=== PATIENT | male | born 1960 | race Caucasian/White ===

== ENCOUNTER 2019-08-18 08:58 | Emergency (ER) | payer BC, SELFPAY ==
--- NOTE | ~2019-08-18 | CT_ITS ---
EXAMINATION: CTA chest PE protocol EXAM DATE: 08/18/2019 10:26 INDICATION: Dyspnea, left anterior chest pain. TECHNIQUE: Spiral CTA of the chest (pulmonary arteries) was performed with 100 cc Omnipaque 350 intr avenous contrast injection. Images were acquired during the pulmonary arterial phase. Coronal maxi mum intensity projection 3D-reconstructions were created by the technologist on dedicated workstation . Axial, coronal and sagittal reformatted images were reviewed. The dose-length product (DLP) for t his examination was 922.07 mGy-cm. The exposure was tailored according to patient size (auto mA exp osure control), and iterative reconstruction (ASIR) was used as additional dose reduction technique. There is no prior study for comparison. FINDINGS: Pulmonary arteries are well opacified and without intraluminal filling defects. There is right hilar adenopathy (2.8 x 1.8 cm) and also suprahilar soft tissue, node or malignancy (1.8 x 1.2 cm) extending along the right upper lobe anterior segmental pulmonary veins which could be thrombosed from occlusion more centrally due to the lymphadenopathy. There is also occlusion of the right upper lobe anterior segmental bronchus. Most likely primary lung cancer and lymphadenopathy. Punctate right upper lobe reticulonodular opacities along the distribution of the obstructed right up per lobe anterior segmental bronchus. There is mild to moderate emphysema. No thoracic aortic dissect ion. The lungs are clear. There are no pleural or pericardial effusions. Tracheobronchial tree i s patent. There is no pneumothorax. Heart normal in size. There is mild coronary arterial vito cification, arterial sclerosis. Upper abdomen is unremarkable. There is a sclerotic focus in the r ight scapula measuring 12 mm. There is a 5 mm sclerotic focus in the left seventh rib laterally IMPRESSION: 1. Right hilar, suprahilar adenopathy likely malignancy and metastatic lymphadenopathy occluding the right upper lobe anterior segmental bronchus and pulmonary veins (which are nonenhancing from tumor and/or bland thrombus). 2. Two sclerotic bone foci, bone islands versus osseous metastatic disease. No pulmonary emboli. 3. Mild to moderate emphysema. Reviewed, dictated and finalized at location B. OWS AND DOORS INSTALLER IMPRESSION: 1. Right hilar, suprahilar adenopathy likely malignancy and metastatic lymphad enopathy occluding the right upper lobe anterior segmental bronchus and pulmona ry veins (which are nonenhancing from tumor and/or bland thrombus). 2. Two sclerotic bone foci, bone islands versus osseous metastatic disease. No pulmonary emboli. 3. Mild to moderate emphysema.
--- NOTE | 2019-08-18 09:03 | ECG_ITS ---
Measurements Intervals [place] Rate: 84 P: 59 WI: 164 QRS: 76 QRSD: 98 T: 73 QT: 360 QTc: 428 Interpretive Statements SINUS RHYTHM INCOMPLETE RIGHT BUNDLE BRANCH BLOCK CANNOT RULE OUT SEPTAL INFARCT, AGE INDETERMINATE ABNORMAL ECG Electronically Signed On 08-18-2019 13:53:44 RECORDING STUDIO INTERN by Gildardo Tran D.O.
[2019-08-18 09:25] LABS: Basophils Absolute Auto 0.08 K/mm3 (0.00-0.10); Basophils Percent Auto 0.7 % (0.0-1.0); Eosinophils Absolute Auto 0.38 K/mm3 (0.02-0.50); Eosinophils Percent Auto 3.5 % (1.0-6.0); Hematocrit 45.1 % (40.0-54.0); Hemoglobin 15.4 g/dL (14.0-18.0); Immature Granulocyte Absolute 0.04 K/mm3 (0.00-0.00); Immature Granulocyte Percent A 0.4 % (0.0-0.0); Lymphocytes Absolute Auto 2.73 K/mm3 (1.10-4.50); Lymphocytes Percent Auto 25.2 % (18.0-42.0); Mean Corpuscular HGB Conc 34.1 g/dL (32.0-36.0); Mean Corpuscular Hemoglobin 29.9 pg (27.0-31.0); Mean Corpuscular Volume 87.6 fL (78.0-102.0); Mean Platelet Volume 9.7 fl (8.7-11.0); Monocytes Absolute Auto 0.74 K/mm3 (0.10-0.90); Monocytes Percent Auto 6.8 % (2.0-11.0); Neutrophils Absolute Auto 6.9 K/mm3 (1.7-7.2); Neutrophils Percent Auto 63.4 % (50.0-70.0); Platelet Count Result 228 K/mm3 (150-420); Red Blood Count 5.15 M/mm3 (4.70-6.10); Red Cell Distribution Width 12.7 % (11.6-14.4); White Blood Count 10.9 K/mm3 (4.8-10.8)
--- NOTE | 2019-08-18 09:29 | ED.CHESTPAIN ---
HPI - Chest Pain General Chief Complaint: Chest Pain Stated Complaint: chest pain Source: patient Mode of arrival: ambulatory Limitations: no limitations History of Present Illness HPI narrative: This is a 58-year-old male with of presentation without chest pain left lower sternal border area with no radiation with a mild cough and pain with deep inspirations started earlier this morning, with mild shortness of breath with some inspiration with currently no fever or chills no nausea vomiting no abdominal pain no back pain no diarrhea constipation. The patient rates his pain at about an 8/10 with no radiation to his jaw or arms, patient does have a history of CAD with a stent placement back in 2011. Patient took a.m. full-dose aspirin prior to arrival, others no leg swelling no edema in his lower extremities no calf pain or tenderness. Current blood pressure 181/108 with no headache no blurry vision. 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 Onset (ago): day(s) Timing of current episode: constant Onset: during rest Pain location: left chest Pain radiation: none Severity: moderate Pain scale (0-10): 8 Quality: tightness and sharp Relieving factors: nothing Exacerbating factors: inspiration Treatment prior to arrival: aspirin Risk Factors Coronary artery disease risk factors: smoking history and hypertension Thoracic aortic dissection risk factors: none Related Data Home Medications Medication Instructions Recorded Confirmed Aspir-81 81 mg BYMOUTH DAILY 08/18/19 08/18/19 Allergies Allergy/AdvReac Type Severity Reaction Status Date / Time sulindac Allergy Mild stomach Verified 10/04/08 15:42 upset codeine AdvReac Mild Unknown Verified 08/18/19 09:54 Review of Systems Review of Systems: All systems reviewed & are unremarkable except as noted in HPI and below PMFSH Past Medical History Medical History CAD (coronary artery disease) HTN (hypertension) Social History Social History Gender identity (if verbalized by the patient): Male Exam Const: General: no acute distress and alert Nutritional Appearance: well nourished Orientation/consciousness: patient oriented x3 HENMT: Head: normal to inspection Eyes: Conjunctivae: conjunctivae normal Pupils: Equal, round and reactive pupils present Neck: Neck: normal visual inspection Chest: Chest palpation & inspection: normal inspection of the chest Resp: Effort & Inspection: normal respiratory effort Cardio: Rate: regular rate Rhythm: regular rhythm GI: Auscultation: normal bowel sounds : Testes: Testes normal Skin: General skin exam: normal color Rashes: no rashes Neuro: General: patient oriented x3, moves all extremities, no meningeal signs and no focal motor deficits Speech: normal speech Extrem: General: normal to inspection, no clubbing, cyanosis or edema and no pedal edema Psych: Appearance: grossly normal Mental Status: mental status grossly normal Affect: normal affect Attitude: cooperative Thought content: Yes Normal thought content present Course Course Emergency Course: After re-evaluation of patient of vital signs have improved his blood pressure initially 181/100 weight is down to 136/94, despite morphine and nitroglycerin continues to rate his pain at about an 8/10. CTA performed and radiology read the CT a and after talking to the patient and his it was advised that he follow-up with his primary care physician a sap offer referral to cash management specialist to investigate of the findings on the CTA of his chest. Was explained that there is a right hilar / suprahilar adenopathy likely malignancy and metastatic lymphadenopathy. There is a 5mm sclerotic lesion on the left 7th rib which would correspond to wear is having pain with mild to moderate COPD. This was explained to francis
[2019-08-18] MEDS: NITROGLYCERIN SL 0.4 MG TABLET SUBLINGUAL (09:31)
[2019-08-18] MEDS: MORPHINE SULFATE 2 MG/ML INJ 4 MG IV PUSH (09:32)
[2019-08-18 09:33] LABS: Partial Thromboplastin Time 33.3 SEC (22.3-31.6); Prothrombin Time 10.1 Seconds (9.64-11.0)
[2019-08-18 09:39] LABS: Alanine Aminotransferase 28 U/L (16-63); Albumin Level 3.9 g/dL (3.4-5.0); Alkaline Phosphatase 89 U/L (46-116); Anion Gap 14.3 mmol/L (7-16); Aspartate Amino Transferase 11 U/L (15-37); Bilirubin,Total 0.3 mg/dL (0.00-1.00); Blood Urea Nitrogen 20 mg/dL (7-18); Carbon Dioxide 27 mmol/L (21-32); Chloride 103 mmol/L (98-108); Estimated Glomerular Filt Rate > 60; Glucose 103 mg/dL (70-99); Osmolality Calculated 292 mOsm/kg (285-295); Potassium 4.3 mmol/L (3.5-5.1); Sodium 140 mmol/L (136-145); Total Protein 7.6 g/dL (6.4-8.2)
[2019-08-18 09:41] VITALS: PULSE 96; RESP 20; TEMP 36.3; O2SAT 98
[2019-08-18 09:46] LABS: D Dimer 0.66 mg/L (0.19-0.50)
[2019-08-18 09:49] LABS: Troponin I < 0.02 ng/mL (0.00-0.056)
[2019-08-18 09:53] LABS: Influenza Control Valid (Valid)
[2019-08-18] MEDS: KETOROLAC 30 MG/ML VIAL (*BKC) IV PUSH (10:40)
[2019-08-18 11:08] VITALS: BP 135/85; PULSE 76; RESP 18; O2SAT 98
== END 2019-08-18 11:09 | disposition home or self-care (01) ==
PROVIDERS: Emergency Provider Emergency Medicine; PCP Family Medicine
DX: R91.1 Solitary pulmonary nodule (principal); R07.9 Chest pain, unspecified
CPT/HCPCS: 36415; 71275; 80053; 84484; 85025; 85380; 85610; 85730; 87804; 93005; 96374; 96375; 99284; A9270; J1885; J2270; Q9965

== ENCOUNTER 2019-08-29 11:02 | Outpatient (CLI) | payer BC, SELFPAY ==
--- NOTE | 2019-08-29 14:18 | ECHO_ITS ---
Patient Info Name: Dario Dixon Age: 58 years : 1960 Gender: Male Ht: 72 in Wt: 250 lbs BSA: 2.44 m2 HR: 82 bpm BP: 146 / 98 mmHg Heart Rhythm: Sinus Rhythm Technical Quality: Fair Exam Date: 08/29/2019 2:10 PM Exam Location: [facility] Patient Status: Outpatient Admit Date: 08/29/2019 Staff Ordering Physician: Gildardo Tran DO Manpower Development Specialist Manager: Malika Collier RDCS Attending Provider: Gildardo Tran DO Referring Physician: Marc SHARP; Exam Type: CA echo doppler color flow Study Info Indications R06.09 - Other forms of dyspnea Complete two-dimensional, color flow and Doppler transthoracic echocardiogram is performed. Strain analysis performed. History/Risk Factors Hypertension: Yes Dyslipidemia: Yes Myocardial Infarction (GA): Yes Obesity: Yes Coronary Artery Disease (CAD) Yes Date of Last Tobacco Use: 08/29/2019 Date of Prior GA: 08/21/2011 Diabetes Mellitus: No Tobacco Use: Current - Every Day If Any Current, Tobacco Type: Cigarettes If Current - Every Day \T\ Cigarettes, Amount: Light Tobacco Use (<10/day) Family History: Diabetes Mellitus Deep Vein Thrombosis (DVT): None Frailty Scale (CSHA): 2: Well Prior Interventions Pacemaker: No PCI: No CABG: No Valve Surgery: No ICD: No Heart Transplant: No Summary 1. Left ventricular chamber dimension is normal. 2. Left ventricular systolic function is normal, estimated at 55-60%. 3. The left ventricular diastolic function is grade I diastolic dysfunction. 4. E/e' 6 is not elevated. 5. Global longitudinal strain is abnormal at -13.1%. 6. There is trace aortic valve regurgitation. 7. The aortic root size at the sinus of Valsalva is borderline dilated at 4.1 cm. Recommendations * Smoking cessation counseling is recommended for this patient. Left Ventricle E/e' 6 is not elevated. Global longitudinal strain is abnormal at -13.1%. Left ventricular chamber dimension is normal. Left ventricular systolic function is normal, estimated at 55-60%. The left ventricular diastolic function is grade I diastolic dysfunction. Right Ventricle Right ventricular chamber dimension is normal. Right ventricular systolic function is normal. Left Atria Left atrial chamber dimension is normal. Right Atria Right atrial chamber dimension is normal. Aortic Valve The aortic valve is trileaflet. There is no aortic valve stenosis. There is trace aortic valve regurgitation. Pulmonic Valve There is no pulmonic regurgitation. Mitral Valve There is no mitral valve stenosis. There is no mitral valve regurgitation. Tricuspid Valve There is no tricuspid valve regurgitation. Pericardium/Pleural There is no pericardial effusion. Inferior Vena Cava Normal inferior vena cava with >50% collapse upon inspiration consistent with normal right atrial pressure, 5 mmHg. Aorta The aortic root size at the sinus of Valsalva is borderline dilated at 4.1 cm. Left Ventricular Outflow Tract Name Value Normal LVOT 2D LVOT Diameter 2.5 cm LVOT Doppler
--- NOTE | 2019-08-29 15:30 | EST_ITS ---
Patient Info Name: Dario Dixon Age: 58 years : 1960 Gender: Male Ht: 72 in Wt: 256 lbs BSA: 2.47 m2 Exam Date: 08/29/2019 12:25 PM Exam Location: [facility] Attending Provider: DO PRINCESS Referring Physician: ARON Beck; Exam Type: Stress Test Summary 1. 1. Negative lexiscan stress test for ischemic ST changes by ECG criteria. 2. 2. Stable hemodynamics throughout the test. 3. 3. Nuclear scan to follow and will be reported separately. Please correlate with it. 4. 4. Patient informed of the above results. Protocol: LEXISCAN Stress ECG Details Stage: REST Duration (min): 6 min : 3 sec HR (bpm): 81 SBP (mmHg): --- DBP (mmHg): --- Stage: REST Duration (min): 12 min : 5 sec HR (bpm): 79 SBP (mmHg): --- DBP (mmHg): --- Stage: STAGE 1 Duration (min): 0 min : 8 sec HR (bpm): 83 SBP (mmHg): --- DBP (mmHg): --- Stage: RECOVERY Duration (min): 0 min : 51 sec HR (bpm): 98 SBP (mmHg): --- DBP (mmHg): --- Stage: RECOVERY Duration (min): 1 min : 51 sec HR (bpm): 102 SBP (mmHg): --- DBP (mmHg): --- Stage: RECOVERY Duration (min): 2 min : 51 sec HR (bpm): 101 SBP (mmHg): --- DBP (mmHg): --- Stage: RECOVERY Duration (min): 3 min : 51 sec HR (bpm): 98 SBP (mmHg): 170 DBP (mmHg): 78 Stage: RECOVERY Duration (min): 4 min : 51 sec HR (bpm): 95 SBP (mmHg): 170 DBP (mmHg): 78 Stage: RECOVERY Duration (min): 5 min : 51 sec HR (bpm): 94 SBP (mmHg): 162 DBP (mmHg): 74 Stage: RECOVERY Duration (min): 6 min : 8 sec HR (bpm): 95 SBP (mmHg): 162 DBP (mmHg): 74 Rest HR: 79 bpm Peak HR: 102 bpm Rest Sys BP: 140 mmHg Peak Sys BP: 170 mmHg Max Pred HR: 162 bpm % Max Pred HR: 63 % Target HR: 138 bpm Max RPP: 17,340 bpm*mmHg Termination Reason: Completed protocol Cardiac Symptoms: Shortness of breath Total Time: 0 min : 8 sec Rest Polanco BP: 70 mmHg Peak Polanco BP: 78 mmHg Total Dose: 0.4 mg Resting ECG Sinus rhythm. Stress ECG No ST changes. Arrhythmias None. Report Signatures
== END 2019-08-29 11:03 | disposition home or self-care (01) ==
PROVIDERS: PCP Family Medicine; Visit Provider Internal Medicine Cardiovascular Disease
DX: R06.09 Other forms of dyspnea (principal); R07.9 Chest pain, unspecified
CPT/HCPCS: 78452; 93017; 93306; A9502; J2785

== ENCOUNTER 2020-07-16 11:03 | Outpatient (CLI) | payer BC, SELFPAY ==
--- NOTE | ~2020-07-16 | XR_ITS ---
EXAMINATION: XR chest 2V EXAM DATE: 07/16/2020 11:22 INDICATION: Cough for one year. History pneumonia. TECHNIQUE: Frontal and lateral projections of the chest obtained and reviewed. Comparison is made to prior examination from 08/08/2015. Correlation made to chest CT 08/18/2019. FINDINGS: Interval development of right suprahilar mass consistent with malignancy. The lungs are ot herwise clear. There are no pleural effusions. The cardiomediastinal silhouette is within normal li mits. There is no pneumothorax suspected. Approximately 1 cm right scapular sclerotic focus. IMPRESSION: Right suprahilar malignancy. I left a message for Dr. Moreno Britt MD's nurse Srikanth on 07/16/2020 11:33 JUICE STANDARDIZER. I alerted her to this report, with pertinent finding and provided my direct number. Reviewed, dictated and finalized at location A. E STANDARDIZER IMPRESSION: Right suprahilar malignancy. I left a message for Dr. Moreno Britt MD's nurse Srikanth on 07/16/2020 11:3 3 JUICE STANDARDIZER. I alerted her to this report, with pertinent finding and provided my di rect number.
== END 2020-07-16 11:04 | disposition home or self-care (01) ==
PROVIDERS: Family Provider Family Medicine; PCP Family Medicine; Visit Provider Family Medicine
DX: R05 Cough (principal); C34.01 Malignant neoplasm of right main bronchus
CPT/HCPCS: 71046

== ENCOUNTER → 2020-07-30 13:43 | Outpatient (CLI) | payer BC, SELFPAY ==
--- NOTE | ~2020-07-30 | CT_ITS ---
EXAMINATION: CT diagnostic chest w con DATE: 07/30/2020 14:17 INDICATION: Localized swelling mass and lump trunk, cough TECHNIQUE: Transaxial computed tomographic images of the chest were obtained after the administration of 75 cc of Omnipaque 350 intravenous contrast. The dose-length product (DLP) was 687.17 mGy-cm. Ite rative reconstruction was used. COMPARISON: 08/18/2019 FINDINGS: There is an approximately 9.0 x 5.6 cm right hilar mass which invades the right upper media stinum. The mass results in severe narrowing and near complete occlusion of the right upper lobe pulm onary artery. There is also obstruction of the right upper lobe bronchus in this phase of respiration although portions of the right upper lobe remain aerated. There are pathologically enlarged right pa ratracheal, right hilar, and subcarinal lymph nodes. Also noted are pathologically enlarged left axil reba lymph nodes. There is a new 10 mm nodule of the left lower lobe on image 64. No pleural effusion or pneumothorax is identified. The heart size is normal. Calcified coronary artery atherosclerosis i s noted. There are innumerable masses of the liver, the largest of which measures 5.5 cm in the right hepatic lobe. There is matted periportal lymphadenopathy. There is a 2.7 x 1.7 cm mass of the left a drenal gland. IMPRESSION: 1. Right perihilar mass, consistent with primary bronchogenic carcinoma. 2. Innumerable liver masses, right hilar, mediastinal, left axillary, and periportal lymphadenopathy, consistent with metastatic disease. 3. New left lower lobe nodule, also concerning for metastatic disease. Reviewed, dictated and finalized at location A. HICS INTERN IMPRESSION: 1. Right perihilar mass, consistent with primary bronchogenic carcinoma. 2. Innumerable liver masses, right hilar, mediastinal, left axillary, and perip ortal lymphadenopathy, consistent with metastatic disease. 3. New left lower lobe nodule, also concerning for metastatic disease.
[2020-07-30 14:07] LABS: Estimated Glomerular Filt Rate > 60
== END ==
PROVIDERS: PCP Family Medicine; Visit Provider Family Medicine
DX: R22.2 Localized swelling, mass and lump, trunk (principal)
CPT/HCPCS: 71260; Q9967

== ENCOUNTER 2020-08-31 13:44 | Outpatient (CLI) | payer BC, SELFPAY ==
--- NOTE | ~2020-08-31 | PE_ITS ---
EXAMINATION: PET skull to mid thigh DATE: 08/31/2020 15:17 INDICATION: Lung nodule. TECHNIQUE: Blood glucose level was 91 mg/dL. 10.140 mCi of 18-fluorodeoxyglucose (18-FDG) was adminis tered i.v. Low dose computed tomography (CT) images were acquired from the base of the brain to the p roximal thighs for attenuation correction and anatomic localization. Automated exposure control was e mployed. Dose-length product (DLP) was 1134 mGy-cm. Positron emission tomography (PET) images were ac quired in the same distribution. COMPARISON: Chest CT 07/30/2020 FINDINGS: Head/neck: There is an enlarged high right internal jugular node with increased activity. There is in creased activity in the glottis without CT correlate, likely physiologic. Chest: There is mild emphysema. There is a large right hilar mass contiguous with mediastinal lymphad enopathy and right lung airspace opacities with increased activity, likely a combination of right vitaliy g primary malignancy and hilar and mediastinal lymphadenopathy. There is total occlusion of right upp er lobe bronchus and right middle lobe bronchus and stenosis of bronchus intermedius. There are perip heral airspace opacities in right middle lobe without increased activity. No pleural effusion. The he art size is normal. There are coronary artery calcifications. There is ectasia of ascending aorta ifeanyi suring 4.5 cm. There is left axillary lymphadenopathy with increased activity. There is a lytic lesio n of coracoid process of left scapula with increased activity. There are enlarged paraesophageal lymp h nodes with increased activity. Abdomen/pelvis/proximal thighs: There are greater than 20 masses in the liver with increased activity measuring up to 5.2 cm in right hepatic lobe. The spleen is normal. There is periportal and peripanc reatic lymphadenopathy with increased activity. There are masses in the adrenal glands with increased activity. There are focal enlargement of the pancreas in multiple areas with increased activity. The kidneys are normal. There is an 8.3 x 6.0 cm mass involving the cecum and appendix with increased ac tivity. There is ileocolic, aortocaval, and left para-aortic lymphadenopathy with increased activity. There is right inguinal lymphadenopathy with increased activity. There is a right-sided hydrocele. T here is no free intraperitoneal fluid. There are multiple lytic lesions in left ilium with increased activity. IMPRESSION: 1. Right lung mass contiguous with right hilar and mediastinal lymphadenopathy, likely primary bronch ogenic carcinoma and metastatic disease. 2. Mass of the cecum and appendix with increased activity, likely a second primary malignancy. 3. Liver masses, adrenal masses, pancreatic masses, bone lesions, and lymphadenopathy of the neck, ch est, abdomen, and pelvis, consistent metastatic disease. Reviewed, dictated and finalized at location A. L HANGING SUPERVISOR IMPRESSION: 1. Right lung mass contiguous with right hilar and mediastinal lymphadenopathy, likely primary bronchogenic carcinoma and metastatic disease. 2. Mass of the cecum and appendix with increased activity, likely a second prim rohith malignancy. 3. Liver masses, adrenal masses, pancreatic masses, bone lesions, and lymphaden opathy of the neck, chest, abdomen, and pelvis, consistent metastatic disease.
[2020-08-31 14:04] LABS: Glucose Point of Care 91 (65-105)
== END 2020-08-31 13:45 | disposition home or self-care (01) ==
PROVIDERS: PCP Family Medicine; Visit Provider Internal Medicine Critical Care Medicine
DX: R91.1 Solitary pulmonary nodule (principal); R59.0 Localized enlarged lymph nodes; K38.8 Other specified diseases of appendix; K63.89 Other specified diseases of intestine; R16.0 Hepatomegaly, not elsewhere classified; E27.8 Other specified disorders of adrenal gland; K86.9 Disease of pancreas, unspecified; M89.9 Disorder of bone, unspecified
CPT/HCPCS: 78815; 82948; A9552

== ENCOUNTER → 2020-09-04 00:37 | Outpatient (CLI) | payer BC, SELFPAY ==
[2020-09-04 18:32] LABS: SARS-CoV-2 RNA PCR Negative
== END ==
PROVIDERS: PCP Family Medicine; Visit Provider Internal Medicine Critical Care Medicine
DX: Z01.812 Encounter for preprocedural laboratory examination (principal); Z20.822 Contact with and (suspected) exposure to COVID-19
CPT/HCPCS: C9803; U0003; U0005

== ENCOUNTER 2020-09-07 10:01 | Outpatient (CLI) | payer BC, SELFPAY ==
[2020-08-29 13:18] VITALS: BMI 32.5
[2020-09-07] VITALS (10 sets, daily range): BP systolic 133–148; BP diastolic 80–99; PULSE 48–99; RESP 16–36; O2SAT 95–98
--- NOTE | ~2020-09-07 | US_ITS ---
EXAMINATION: US biopsy liver DATE: 09/07/2020 12:09 INDICATION: Liver mass. TECHNIQUE: The procedure including the risks, benefits, and alternatives was discussed with the patie nt. Risks discussed included bleeding and infection. The patient understood the risks and agreed to p roceed. The skin overlying the right hepatic lobe was prepped and draped in usual sterile fashion. A nesthetic was administered with 1% lidocaine subcutaneously. An 18 gauge core biopsy needle was then used to obtain 3 core biopsy specimens under continuous sonographic guidance. The entry site was karen aned and dressed. There were no immediate complications. FINDINGS: Ultrasound images demonstrate the needle in a 5.6 x 5.2 x 3.9 cm mass in right hepatic lobe . IMPRESSION: 1. Ultrasound-guided core needle biopsy of a mass in right hepatic lobe. Reviewed, dictated and finalized at location A.
[2020-09-07 10:27] LABS: Mean Platelet Volume 9.7 fl (7.4-10.4); Platelet Count Result 349 k/mm3 (150-375)
[2020-09-07 10:38] LABS: Prothrombin Time 14.2 Seconds (11.1-14.7)
== END 2020-09-07 15:42 | disposition home or self-care (01) ==
PROVIDERS: Radiology Diagnostic Radiology; PCP Family Medicine; Visit Provider Internal Medicine Critical Care Medicine
DX: R16.0 Hepatomegaly, not elsewhere classified (principal); C7A.8 Other malignant neuroendocrine tumors
CPT/HCPCS: 36415; 47000; 76942; 85049; 85610; 88307; 88342

== ENCOUNTER 2020-09-13 07:57 | Outpatient (CLI) | payer BC, SELFPAY ==
[2020-09-13 09:05] VITALS: PULSE 111; O2SAT 92
[2020-09-13 09:10] VITALS: PULSE 111; O2SAT 86
[2020-09-13 09:15] VITALS: PULSE 122; O2SAT 87
[2020-09-13 09:20] VITALS: PULSE 124; O2SAT 90
[2020-09-13 09:35] VITALS: PULSE 110; O2SAT 93
--- NOTE | 2020-09-13 10:11 | HOMEO2EVAL ---
Home Oxygen Evaluation RC: Home Oxygen (O2) Evaluation Start: 09/13/20 10:06 Freq: Status: Active Protocol: RPE Activity Type Activity Date Activity User E-Sign Co-Sign Detail Recorded Client Recorded Date Recorded By Document 09/13/20 09:05 [email or web address] [email or web address] 09/13/20 10:10 DJO Document 09/13/20 09:10 [email or web address] [email or web address] 09/13/20 10:10 DJO Document 09/13/20 09:15 [email or web address] [email or web address] 09/13/20 10:10 DJO Document 09/13/20 09:20 [email or web address] [email or web address] 09/13/20 10:10 DJO Document 09/13/20 09:35 [email or web address] [email or web address] 09/13/20 10:10 DJO 09/13/20 09/13/20 09/13/20 09:05 09:10 09:15 Home O2 Evaluation Test Phase Resting Exercise Exercise Oxygen Delivery Room Air Room Air Nasal Cannula Oxygen Flow Rate (L/min) 1 Pulse Oximetry (90-100 %) 92 86 L 87 L Pulse Rate (60-100 beats/min) 111 H 111 H 122 H Activity Tolerance Ambulation Distance (feet) Treatment Charges O2 Evaluation - Outpatient 09/13/20 09/13/20 09:20 09:35 Home O2 Evaluation Test Phase Exercise Resting Oxygen Delivery Nasal Cannula Room Air Oxygen Flow Rate (L/min) 2 Pulse Oximetry (90-100 %) 90 93 Pulse Rate (60-100 beats/min) 124 H 110 H Activity Tolerance Good Ambulation Distance (feet) 400 Treatment Charges
--- NOTE | 2020-09-16 10:12 | WPDPFTINT ---
PFT Interpretation This PFT met all criteria for ATS standards and reproducibility FEV/FVC post bronchodilator 55% FEV1 42% or 1.64 L FVC 59% or 2.98 L there was a borderline significant response post bronchodilator by 180 mL and 12% TLC 73% RV 118% RV/TLC 51% DLCO 61% when adjusted for alveolar volume but not adjusted for hemoglobin Flow volume loops showed Impression: A combined obstructive and restrictive ventilatory defect is present with mildly decreased diffusion capacity and good improvement bronchodilator challenge. The obstructive part may be due to COPD with a possible asthma component. The restrictive portion may be due to underlying obesity although other lung disorders such as ILD cannot be ruled out. Clinical correlation is advised.
== END 2020-09-13 07:58 | disposition home or self-care (01) ==
PROVIDERS: PCP Family Medicine; Visit Provider Internal Medicine Critical Care Medicine
DX: R06.02 Shortness of breath (principal)
CPT/HCPCS: 94060; 94618; 94726; 94729

== ENCOUNTER 2020-09-28 09:57 | Outpatient (CLI) | payer BC, SELFPAY ==
--- NOTE | 2020-09-28 11:00 | ECG_ITS ---
Measurements Intervals [place] Rate: 98 P: 40 VT: 154 QRS: 27 QRSD: 94 T: 52 QT: 331 QTc: 424 Interpretive Statements SINUS RHYTHM POSSIBLE LEFT ATRIAL ENLARGEMENT INCOMPLETE RIGHT BUNDLE BRANCH BLOCK DELAYED PRECORDIAL R/S TRANSITION BORDERLINE ST-T WAVE ABNORMALITY- ANTERIOR LEADS BORDERLINE ECG Electronically Signed On 09-28-2020 10:38:47 CDT by Gildardo Tran D.O.
[2020-09-28 11:02] LABS: Basophils Percent Auto 0.3 % (0.2-1.2); Eosinophils Absolute Auto 0.1 K/mm3 (0-0.3); Eosinophils Percent Auto 1.2 % (0-4.4); Hematocrit 34.2 % (42.0-52.0); Immature Granulocyte Absolute 0.05 K/mm3 (0.00-0.031); Immature Granulocyte Percent A 0.8 % (0-0.5); Lymphocytes Absolute Auto 0.73 K/mm3 (0.9-3.2); Lymphocytes Percent Auto 12.3 % (18.3-44.2); Mean Corpuscular HGB Conc 32.2 g/dl (32-36); Mean Corpuscular Hemoglobin 24.8 pg (26-34); Mean Corpuscular Volume 77.2 fl (80-100); Mean Platelet Volume 9.8 fl (7.4-10.4); Monocytes Absolute Auto 0.2 K/mm3 (0.1-0.6); Monocytes Percent Auto 2.7 % (2.6-8.5); Neutrophils Absolute Auto 4.9 K/mm3 (1.3-6.7); Neutrophils Percent Auto 82.7 % (45.5-73.1); Platelet Count Result 197 k/mm3 (150-375); Red Blood Count 4.43 M/mm3 (4.6-6.20); Red Cell Distribution Width 14.7 % (11.5-14.5); White Blood Count 5.9 K/mm3 (4.5-10.0)
[2020-09-28 11:15] LABS: Anion Gap 4 mmol/L (8-16); Blood Urea Nitrogen 19 mg/dL (9-20); Calcium 8.5 mg/dL (8.4-10.2); Carbon Dioxide 31 mmol/L (22-30); Chloride 100 mmol/L (98-107); Estimated Glomerular Filt Rate > 60; Glucose 117 mg/dL (75-110); Sodium 135 mmol/L (137-145)
[2020-09-28 11:16] LABS: Partial Thromboplastin Time 31.4 SECONDS (22.3-36.8)
== END 2020-09-28 09:58 | disposition home or self-care (01) ==
LOC: ANHSURGERY 10:01
PROVIDERS: Anesthesiology; PCP Family Medicine; Visit Provider Surgery
DX: Z01.818 Encounter for other preprocedural examination (principal); I10 Essential (primary) hypertension; F17.210 Nicotine dependence, cigarettes, uncomplicated; C34.90 Malignant neoplasm of unspecified part of unspecified bronchus or lung; Z79.899 Other long term (current) drug therapy
CPT/HCPCS: 36415; 80048; 85025; 85730; 93005

== ENCOUNTER → 2020-09-29 01:30 | Outpatient (CLI) | payer BC, SELFPAY ==
[2020-09-29 18:52] LABS: SARS-CoV-2 RNA PCR Negative
== END ==
PROVIDERS: PCP Family Medicine; Visit Provider Surgery
DX: Z01.812 Encounter for preprocedural laboratory examination (principal); Z20.822 Contact with and (suspected) exposure to COVID-19
CPT/HCPCS: C9803; U0003; U0005

== ENCOUNTER 2020-10-02 01:37 | Day surgery (SDC) | payer BC, SELFPAY ==
[2020-09-27 10:04] VITALS: BMI 31.1
--- NOTE | ~2020-10-02 | XR_ITS ---
EXAMINATION: XR fl guide central line place EXAM DATE: 10/02/2020 11:34 INDICATION: SVC obstruction from malignancy. Left common femoral portacatheter insertion. TECHNIQUE: Fluoroscopy used during portacatheter placement performed by Dr. Kareem Smith MD. Radiologist was not present for the imaging or procedure. Total fluoroscopic time of 1.5 minutes. A total of 3 images obtained for the exam. The DAP for this procedure was 0.72 mGym2. FINDINGS: Images demonstrate left common femoral vein approach portacatheter, tip projecting just to the right of the L2-3 interspace, expected location of the mid IVC. Correlate with procedure note. IMPRESSION: Fluoroscopy used during left femoral portacatheter placement. Reviewed, dictated and finalized at location A.
--- NOTE | ~2020-10-02 | XR_ITS ---
EXAMINATION: XR abdomen/kub 1V EXAM DATE: 10/02/2020 12:14 INDICATION: Fernando catheter insertion. TECHNIQUE: Frontal projection(s) of the abdomen for interpretation. There is no prior study for iram ge. FINDINGS: There is a left femoral portacatheter, tip projecting right of the spine at the L1-2 level , expected location of the IVC. Nonobstructive bowel gas pattern. Mild lumbar levoscoliosis. Mild bon y degenerative changes. Mottled appearance to left side of pelvis probably weight for compression. IMPRESSION: Left common femoral venous portacatheter, tip projecting over the L1-2 level. Reviewed, dictated and finalized at location A.
--- NOTE | 2020-10-02 07:34 | PM.HPGS ---
History of Present Illness History of Present Illness Consent: Risks, benefits, and alternatives of US guided placement of a Fernando-cath have been discussed and questions answered. Patient agrees to proceed with procedure. Chief complaint: Small Cell Lung CA Narrative: Dario Dixon is a 59 year old male with recently diagnosed extensive metastatic small cell lung cancer. Patient has and had least 1 round of chemotherapy. 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 This is contiuing at this time with appts. yet this week for further Rx. Apparently this continues with Dr. Pelletier. After some treatments of radiation the patient's neck swelling has improved. Patient presents this time for ultrasound-guided placement of a Port-A-Cath to continue his chemotherapy and for good IV access. Review of Systems Constitutional: Constitutional: Reports no additional constitutional complaints, Reports fatigue and Denies malaise Eyes: Eyes: Denies change in vision and Denies loss of vision ENT: Reports Normal hearing present, Denies change in voice, Denies dizziness, Denies hoarseness and Denies sore throat Cardiovascular: Cardiovascular: Denies chest pain, Denies leg edema and Denies dyspnea Respiratory: Respiratory: Denies cough, Denies dyspnea and Denies wheezing Comments: Hx of smoking. Now occasionally SOB wiht exercise. Gastrointestinal: Gastrointestinal: Denies hematochezia, Denies change in bowel habits and Denies heartburn Comments: Apparently has an abnormality of the appendix that is being observed. Genitourinary: Genitourinary: Denies urinary frequency and Denies urinary incontinence Neurologic: Reports Normal hearing present, Denies confusion, Denies dizziness, Denies loss of vision, Denies memory loss and Denies seizure-like activity Psychiatric: Psychiatric: Denies confusion, Denies depression and Denies memory loss Endocrine: Endocrine: Denies cold intolerance and Reports fatigue Hematologic/Lymphatic: Hematologic/Lymphatic: Denies easy bleeding and Denies easy bruising Allergic/Immunologic: Allergic/Immunologic: Denies wheezing PMFSH Past Medical History Medical History CAD (coronary artery disease) 08/2011; 1st diag br 50% stenosis, Left circumflex 30% plaque; 1st obtuse marginal 99% occlusion; RCA 30-40% proximal plaque; EF 55%, stent in obtuse edgardo br of L cx, NSTEMI Chest pain COTE (dyspnea on exertion) History of tobacco abuse HTN (hypertension) Liver mass Preop cardiovascular exam Shortness of Breath Smoking Surgical History Surgical History History of PTCA Family History Family History Father , 74-[place]li[place] Mesothelioma Mother No problems noted. Social History Social History Smoking packs per day: 1 Smoking cigarettes per day: 20.0 Years smoked: 40 Smoking pack-years: 40.00 Smoking status: Former smoker Tobacco type: cigarettes Smoking end date: 06/24/20 Alcohol intake: never Substance use: never Substance use type: does not use Living arrangements: with family Gender identity (if verbalized by the patient): Male Spiritual care concerns: No Meds Home Medications and Allergies Home Medications Medication Instructions Recorded Confirmed Type albuterol sulfate 90 mcg/actuation 1 inh INHALATION Q4H PRN 08/16/20 10/02/20 History aerosol inhaler fluticasone fur. 100 mcg-umeclid 1 inh INHALATION Q24H 30 Days #60 08/16/20 10/02/20 Rx 62.5 mcg-vilant 25 mcg ea inhalat.powder Trelegy Ellipta 1 inh INHALATION DAILY 09/24/20 10/02/20 History dexamethasone 4 mg PO BID 09/24/20 10/02/20 History ferrous sulfate 325 mg PO BID 09/24/20 10/02/20 History furosemide [Lasix] 20 mg
[2020-10-02 08:57] VITALS: BP 110/71; PULSE 104; RESP 22; TEMP 36.9; O2SAT 98
[2020-10-02] MEDS: LACTATED RINGERS 1,000 ML 30 ML IV CONT (09:40)
--- NOTE | 2020-10-02 09:55 | WPDANESEPPF ---
Anes - Initial Pre Proc Eval Procedure: Operation Date: 10/02/20 10:30 Proposed Procedures p Insertion Fernando Cath - Kareem Smith MD Date/Time: 10/02/20 09:55 Surgeon: Kareem Smith MD Pre Op Diagnosis: Small Cell Lung CA Patient Data Age: 59 Gender: M Height: 6 ft Weight: 104.3 kg Allergies Allergy/AdvReac Type Severity Reaction Status Date / Time varenicline [From Chantix] Allergy Severe BAD DREAMS Verified 10/02/20 08:57 morphine Allergy Unknown DOESN'T Verified 10/02/20 08:57 WORK sulindac AdvReac Mild stomach Verified 10/02/20 08:57 upset Home Medications Medication Instructions Recorded Confirmed Type albuterol sulfate 90 mcg/actuation 1 inh INHALATION Q4H PRN 08/16/20 10/02/20 History aerosol inhaler fluticasone fur. 100 mcg-umeclid 1 inh INHALATION Q24H 30 Days #60 08/16/20 10/02/20 Rx 62.5 mcg-vilant 25 mcg ea inhalat.powder dexamethasone 4 mg PO BID 09/24/20 10/02/20 History ferrous sulfate 325 mg PO BID 09/24/20 10/02/20 History eeraambrqtu-cwhdagmzt-yghmhnov 1 inh INHALATION DAILY 09/24/20 10/02/20 History [Trelegy Ellipta] furosemide [Lasix] 20 mg PO DAILY 09/24/20 10/02/20 History lorazepam 0.5 mg PO TID PRN 09/24/20 10/02/20 History pantoprazole [Protonix] 20 mg PO DAILY 09/24/20 10/02/20 History tramadol [Ultram] 100 mg PO Q4H PRN 09/24/20 10/02/20 History Patient hx anesthesia problems: none Family hx anesthesia problems: none PMFSH Past Medical History Medical History CAD (coronary artery disease) 08/2011; 1st diag br 50% stenosis, Left circumflex 30% plaque; 1st obtuse marginal 99% occlusion; RCA 30-40% proximal plaque; EF 55%, stent in obtuse edgardo br of L cx, NSTEMI Chest pain COTE (dyspnea on exertion) History of tobacco abuse HTN (hypertension) Liver mass Preop cardiovascular exam Shortness of Breath Smoking Surgical History Surgical History History of PTCA Family History Family History Father , 74-Mesothelioma Mesothelioma Mother No problems noted. Social History Social History Smoking packs per day: 1 Smoking cigarettes per day: 20.0 Years smoked: 40 Smoking pack-years: 40.00 Smoking status: Former smoker Tobacco type: cigarettes Smoking end date: 06/24/20 Alcohol intake: never Substance use: never Substance use type: does not use Living arrangements: with family Gender identity (if verbalized by the patient): Male Spiritual care concerns: No Anes - Eval Final PreProcedure Day of Procedure 10/02/20 09:55 Patient weight: obese Heart: regular rate and rhythm Lungs: clear to auscultation Airway: Mallampati scale class II Neurological: alert and oriented Last oral intake: >/= 8 hours ASA classification: III Emergent: no Anesthetic plan: proceed Anesthesia type and monitoring: general GIVS and standard monitoring Informed Consent: The patient's anesthetic plan and its attendant risks and benefits were discussed with the patient/family/POA. Questions were solicited and answers provided to the satisfaction of the patient/family/POA.
--- NOTE | 2020-10-02 10:12 | SUR.PREOP ---
0950-DR. SAMAYOA INITIATED FACE MASK @ 3L/MINUTE WHILE SPEAKING WITH PT, PT BECAME ANXIOUS AND MORE SOB. 1010-PT STATES BREATHING AND ANXIETY GREATLY IMPROVED WITH OXYGEN.
--- NOTE | 2020-10-02 10:25 | WPDHPUPDATE1 ---
History and Physical Update Update Date/Time: 10/02/20 10:25 History and Physical has been reviewed, including an updated exam of the patient. There are NO changes in the patient's condition. Risks, benefits, and alternatives of an US guided placement of a fitz-cath have been discussed and questions answered. Patient agrees to proceed with procedure.
[2020-10-02] MEDS: ceFAZolin 2 GM/D5W 50 ML 2 GM/50 ML BAG IVPB (10:35)
[2020-10-02] MEDS: BUPIVACAINE/EPINEPHRINE 0.5% 30 ML VIAL INFILTRATE (11:09)
[2020-10-02] MEDS: HEPARIN SODIUM 5,000 UNITS/ML VIAL 5000 UNITS IRRIGATION (11:13)
--- NOTE | 2020-10-02 11:42 | PM.PROC ---
Procedure Note - Detailed Date of procedure: 10/02/20 Pre-op diagnosis: Small Cell Lung CA 2. Superior vena cava syndrome Post-op diagnosis: same Procedure performed: Ultra-sound guided placement of Port-A-Cath ( via a left femoral vein). Description of procedure: Patient was seen and marked in the pre-op area prior to coming to the OR. Patient was brought to the operating room. He was placed supine on the operating table and general IV sedation was induced. In view of his superior vena cava syndrome we plan to go through the femoral approach. Therefore the bed was appropriately positioned to allow C-arm use under the abdomen and pelvis. The nurse lens assorter provided oxygen and IV sedation. The lower abdomen and bilateral groins on both sides were prepped and draped in the usual sterile fashion. Following this the appropriate time-out was completed confirming procedure and patient. We confirmed that all the needed equipment was present in the room. Following this the ultrasound probe was draped into the field and using the probe we carefully identified the left femoral artery and vein. Anatomy appeared appropriate and normal. An ultrasound picture was obtained in this position. I marked the skin directly over the left femoral vein near or at the groin crease. Following this, using the continuous ultrasound guidance, a Cook needle was placed through the skin into this vein. I then was able to draw back good dark blood. Once this was completed a guidewire using a J-tip was advanced through the needle and then the needle and the guidewire cover were withdrawn. C-arm fluoroscopy was used to confirm that the guidewire was nicely in the inferior vena cava of the central venous system. Once this was confirmed with the C - arm I preceded on by making the pocket for the port on the patient's lower left abdomen just medial to the anterior superior iliac spine of the pelvic bones. Local anesthetic was infiltrated into the skin where there was a transverse incision marked out. Incision was made and we made a pocket just superior to the incision with just a little dissection inferior. The Smart port was tried in the pocket and seemed to fit well. Following this the catheter which had been placed on a tunneling device was tunneled from the port site on the LLQ of the abdomen down to the left groin. I made 1 counter incision slightly below and lateral to the site of insertion of the guidewire into the left groin such that we could make the catheter make a nice smooth curve as it came down through the skin of the abdomen into the groin and then back toward the femoral vein in the left groin. Approximately 40 cm was inserted into the femoral vein and the tip of the catheter by C-arm fluoroscopy appeared to be in the mid inferior vena cava when we finished. Up to the right neck where a small incision had been made with an #11 blade knife. Then the catheter was pulled through so that we would have 40 centimeters to put into the central venous system once the dilation took place. Following this we placed the dilator and sheath over the guidewire in the left femoral vein and carefully dilated the tract into the central venous system. The guidewire and dilator were then removed, carefully covering the end of the sheath to prevent air embolus. The end of the catheter was tip checked was then inserted into the sheath and into the left femoral vein. I then carefully pulled the 2 arms of the tear-away sheath away as the surgical assistant certified held the catheter in position with a DeBakey forceps. Approximately 40 cm was inserted into the femoral vein and the tip of the catheter by C-arm fluoroscopy appeared to be in the mid inferior vena cava when we finished. Then the catheter was pulled through so that we would have 40 centimeters to put into the central venous system once the dilation took place. I felt that it was in good position and so the rest of the catheter was pulled up tow
[2020-10-02 11:44] VITALS: BP 112/75; PULSE 75; RESP 16; O2SAT 98
[2020-10-02 12:15] VITALS: BP 113/76; PULSE 76; RESP 20
--- NOTE | 2020-10-02 12:32 | SUR.PHASEII ---
1230 - dr. yu at bedside assessing pt's fitz-cath xray
[2020-10-02 12:45] VITALS: BP 110/80; PULSE 77; RESP 20
[2020-10-02 13:10] VITALS: BP 115/82; PULSE 77; RESP 20
--- NOTE | 2020-10-02 13:14 | SUR.PHASEII ---
1300 - Pepper, wound care nurse at bedside, assessing pt's pressure sore that was present prior to coming into hospital.
--- NOTE | 2020-10-02 15:06 | PCWOUND ---
WOCN NOTE Wound care received request for patient evaluation for sore to buttock. buttock cheeks rubbing together with open friction area and maceration. triple care barrier cream ordered for patient and chair cushion. educated patient and spouse on proper care with understanding stated.
== END 2020-10-02 13:22 | disposition home or self-care (01) ==
PROVIDERS: PCP Family Medicine; Visit Provider Surgery
PROC: (CPT 36561; principal; 2020-10-02 10:30)
DX: C34.90 Malignant neoplasm of unspecified part of unspecified bronchus or lung (principal); C79.31 Secondary malignant neoplasm of brain; I87.1 Compression of vein; J44.9 Chronic obstructive pulmonary disease, unspecified; I10 Essential (primary) hypertension; I25.10 Atherosclerotic heart disease of native coronary artery without angina pectoris; Z87.891 Personal history of nicotine dependence; Z79.51 Long term (current) use of inhaled steroids; Z95.5 Presence of coronary angioplasty implant and graft
CPT/HCPCS: 36561; 74018; 77001; A9270; C1788; J0690; J1644; J2250; J2370; J2704; J3010; J7030; J7120

== ENCOUNTER → 2020-10-26 00:37 | Outpatient (CLI) | payer BC, SELFPAY ==
[2020-10-26 18:42] LABS: SARS-CoV-2 RNA PCR Negative
== END ==
PROVIDERS: PCP Family Medicine; Visit Provider Internal Medicine Gastroenterology
DX: Z01.812 Encounter for preprocedural laboratory examination (principal); Z20.822 Contact with and (suspected) exposure to COVID-19
CPT/HCPCS: C9803; U0003; U0005

== ENCOUNTER 2020-10-29 01:55 | Day surgery (SDC) | payer BC, SELFPAY ==
[2020-10-18 14:53] VITALS: BMI 29.9
[2020-10-29 06:42] VITALS: BMI 29.6
[2020-10-29] MEDS: LACTATED RINGERS 1,000 ML 150 ML IV CONT (06:46)
--- NOTE | 2020-10-29 07:13 | WPDANESEPP ---
Anes - Eval Pre Procedure Procedure: Operation Date: 10/29/20 07:30 Proposed Procedures p Colonoscopy - Byron Hummel MD Date/Time: 10/29/20 07:13 Pre Op Diagnosis: colonic mass Patient Data Age: 59 Gender: M Height: 1.83 m Weight: 99.2 kg Allergies Allergy/AdvReac Type Severity Reaction Status Date / Time varenicline [From Chantix] Allergy Severe BAD DREAMS Verified 10/29/20 06:40 morphine Allergy Unknown DOESN'T Verified 10/29/20 06:40 WORK sulindac AdvReac Mild stomach Verified 10/29/20 06:40 upset Home Medications Medication Instructions Recorded Confirmed Type albuterol sulfate 90 mcg/actuation 1 inh INHALATION Q4H PRN 08/16/20 10/29/20 History aerosol inhaler Trelegy Ellipta 1 inh INHALATION DAILY 09/24/20 10/29/20 History dexamethasone 2 mg PO DAILY 09/24/20 10/29/20 History ferrous sulfate 650 mg PO DAILY 09/24/20 10/29/20 History furosemide [Lasix] 20 mg PO DAILY 09/24/20 10/29/20 History lorazepam 0.5 mg PO Q6H PRN 09/24/20 10/29/20 History pantoprazole [Protonix] 20 mg PO DAILY 09/24/20 10/29/20 History tramadol [Ultram] 50 mg PO Q6H PRN 09/24/20 10/29/20 History nystatin 4 - 6 ml PO QID #200 ml 10/04/20 10/29/20 Rx hydrocodone-acetaminophen 10 ml PO Q6H PRN 10/18/20 10/29/20 History Patient hx anesthesia problems: none Family hx anesthesia problems: none PMFSH Past Medical History Medical History CAD (coronary artery disease) 08/2011; 1st diag br 50% stenosis, Left circumflex 30% plaque; 1st obtuse marginal 99% occlusion; RCA 30-40% proximal plaque; EF 55%, stent in obtuse edgardo br of L cx, NSTEMI Chest pain COTE (dyspnea on exertion) History of tobacco abuse HTN (hypertension) Liver mass Preop cardiovascular exam Shortness of Breath Smoking Surgical History Surgical History History of PTCA Family History Family History Father , 74-Mesothelioma Mesothelioma Mother No problems noted. Social History Social History Smoking packs per day: 1 Smoking cigarettes per day: 20.0 Years smoked: 50 Smoking pack-years: 50.00 Smoking status: Former smoker Tobacco type: cigarettes Smoking end date: 06/24/20 Alcohol intake: never Substance use: never Substance use type: does not use Living arrangements: with family Gender identity (if verbalized by the patient): Male Spiritual care concerns: No Exam Day of Procedure 10/29/20 07:13
--- NOTE | 2020-10-29 07:18 | WPDANESEPPF ---
Anes - Initial Pre Proc Eval Procedure: Operation Date: 10/29/20 07:30 Proposed Procedures p Colonoscopy - Byron Hummel MD Date/Time: 10/29/20 07:18 Surgeon: Byron Hummel MD Pre Op Diagnosis: colonic mass Patient Data Age: 59 Gender: M Height: 6 ft Weight: 99.2 kg Allergies Allergy/AdvReac Type Severity Reaction Status Date / Time varenicline [From Chantix] Allergy Severe BAD DREAMS Verified 10/29/20 06:40 morphine Allergy Unknown DOESN'T Verified 10/29/20 06:40 WORK sulindac AdvReac Mild stomach Verified 10/29/20 06:40 upset Home Medications Medication Instructions Recorded Confirmed Type albuterol sulfate 90 mcg/actuation 1 inh INHALATION Q4H PRN 08/16/20 10/29/20 History aerosol inhaler Trelegy Ellipta 1 inh INHALATION DAILY 09/24/20 10/29/20 History dexamethasone 2 mg PO DAILY 09/24/20 10/29/20 History ferrous sulfate 650 mg PO DAILY 09/24/20 10/29/20 History furosemide [Lasix] 20 mg PO DAILY 09/24/20 10/29/20 History lorazepam 0.5 mg PO Q6H PRN 09/24/20 10/29/20 History pantoprazole [Protonix] 20 mg PO DAILY 09/24/20 10/29/20 History tramadol [Ultram] 50 mg PO Q6H PRN 09/24/20 10/29/20 History nystatin 4 - 6 ml PO QID #200 ml 10/04/20 10/29/20 Rx hydrocodone-acetaminophen 10 ml PO Q6H PRN 10/18/20 10/29/20 History Patient hx anesthesia problems: none Family hx anesthesia problems: none PMFSH Past Medical History Medical History CAD (coronary artery disease) 08/2011; 1st diag br 50% stenosis, Left circumflex 30% plaque; 1st obtuse marginal 99% occlusion; RCA 30-40% proximal plaque; EF 55%, stent in obtuse edgardo br of L cx, NSTEMI Chest pain COTE (dyspnea on exertion) History of tobacco abuse HTN (hypertension) Liver mass Preop cardiovascular exam Shortness of Breath Smoking Surgical History Surgical History History of PTCA Family History Family History Father , 74-Mesothelioma Mesothelioma Mother No problems noted. Social History Social History Smoking packs per day: 1 Smoking cigarettes per day: 20.0 Years smoked: 50 Smoking pack-years: 50.00 Smoking status: Former smoker Tobacco type: cigarettes Smoking end date: 06/24/20 Alcohol intake: never Substance use: never Substance use type: does not use Living arrangements: with family Gender identity (if verbalized by the patient): Male Spiritual care concerns: No Anes - Eval Final PreProcedure Day of Procedure 10/29/20 07:18 Patient weight: obese Heart: regular rate and rhythm Lungs: clear to auscultation Airway: Mallampati scale class II Neurological: alert and oriented Last oral intake: >/= 8 hours ASA classification: IV Emergent: no Anesthetic plan: proceed Anesthesia type and monitoring: general GIVS and standard monitoring Informed Consent: The patient's anesthetic plan and its attendant risks and benefits were discussed with the patient/family/POA. Questions were solicited and answers provided to the satisfaction of the patient/family/POA.
--- NOTE | 2020-10-29 07:32 | PM.HPGS ---
History of Present Illness History of Present Illness Consent: Risks, benefits, and alternatives have been discussed and questions answered. Patient agrees to proceed with procedure. Chief complaint: colonic mass Narrative: Dario Dixon is a 59 year old male with stage IV lung cancer with recent PET scan showed mass of the cecum and appendix with increased activity, likely a second primary malignancy. Never had colonoscopy Review of Systems Constitutional: Constitutional: Denies headache(s) and Denies weakness Eyes: Eyes: Denies blurry vision ENT: Reports Normal hearing present, Denies headache(s) and Denies neck pain Cardiovascular: Cardiovascular: Denies chest pain and Denies dyspnea Respiratory: Respiratory: Denies dyspnea Gastrointestinal: Gastrointestinal: Reports no additional gastrointestinal complaints Genitourinary: Genitourinary: Denies dysuria Musculoskeletal: Musculoskeletal: Denies neck pain Integumentary/Breasts: Skin/Breast: Denies dry skin Neurologic: Reports Normal hearing present, Denies headache(s) and Denies weakness Psychiatric: Psychiatric: Denies anxiety Endocrine: Endocrine: Denies change in body appearance Hematologic/Lymphatic: Hematologic/Lymphatic: Denies easy bleeding Allergic/Immunologic: Allergic/Immunologic: Denies urticaria PMFSH Past Medical History Medical History Abnormal PET scan of colon CAD (coronary artery disease) 08/2011; 1st diag br 50% stenosis, Left circumflex 30% plaque; 1st obtuse marginal 99% occlusion; RCA 30-40% proximal plaque; EF 55%, stent in obtuse edgardo br of L cx, NSTEMI Chest pain COTE (dyspnea on exertion) History of tobacco abuse HTN (hypertension) Liver mass Preop cardiovascular exam Shortness of Breath Smoking Surgical History Surgical History History of PTCA Family History Family History Father , 74-Mesothelioma Mesothelioma Mother No problems noted. Social History Social History Smoking packs per day: 1 Smoking cigarettes per day: 20.0 Years smoked: 50 Smoking pack-years: 50.00 Smoking status: Former smoker Tobacco type: cigarettes Smoking end date: 06/24/20 Alcohol intake: never Substance use: never Substance use type: does not use Living arrangements: with family Gender identity (if verbalized by the patient): Male Spiritual care concerns: No Meds Home Medications and Allergies Home Medications Medication Instructions Recorded Confirmed Type albuterol sulfate 90 mcg/actuation 1 inh INHALATION Q4H PRN 08/16/20 10/29/20 History aerosol inhaler Trelegy Ellipta 1 inh INHALATION DAILY 09/24/20 10/29/20 History dexamethasone 2 mg PO DAILY 09/24/20 10/29/20 History ferrous sulfate 650 mg PO DAILY 09/24/20 10/29/20 History furosemide [Lasix] 20 mg PO DAILY 09/24/20 10/29/20 History lorazepam 0.5 mg PO Q6H PRN 09/24/20 10/29/20 History pantoprazole [Protonix] 20 mg PO DAILY 09/24/20 10/29/20 History tramadol [Ultram] 50 mg PO Q6H PRN 09/24/20 10/29/20 History nystatin 4 - 6 ml PO QID #200 ml 10/04/20 10/29/20 Rx hydrocodone-acetaminophen 10 ml PO Q6H PRN 10/18/20 10/29/20 History Allergies Allergy/AdvReac Type Severity Reaction Status Date / Time varenicline [From Chantix] Allergy Severe BAD DREAMS Verified 10/29/20 06:40 morphine Allergy Unknown DOESN'T Verified 10/29/20 06:40 WORK sulindac AdvReac Mild stomach Verified 10/29/20 06:40 upset Exam Const: General: comfortable and no acute distress HENMT: General nose exam: Normal nares present Eyes: General: appearance normal, both eyes and all related structures Neck: Neck: no JVD Resp: Auscultation: clear to auscultation bilaterally Cardio: Rate: regular rate Rhythm: regular rhythm GI: Inspection: non-distended
[2020-10-29 07:35] VITALS: BP 148/92; PULSE 102; RESP 17; TEMP 36.9; O2SAT 98
[2020-10-29 07:53] VITALS: BP 92/66; PULSE 86; RESP 24; O2SAT 98
[2020-10-29 08:03] VITALS: BP 120/78; PULSE 90; RESP 23; O2SAT 98
[2020-10-29 08:13] VITALS: BP 119/72; PULSE 80; RESP 23; O2SAT 100
== END 2020-10-29 08:45 | disposition home or self-care (01) ==
PROVIDERS: PCP Family Medicine; Visit Provider Internal Medicine Gastroenterology
PROC: 0DJD8ZZ Inspection of Lower Intestinal Tract, Via Natural or Artificial Opening Endoscopic (ICD-10-PCS; CPT 45378; principal; 2020-10-29 07:30)
DX: C78.5 Secondary malignant neoplasm of large intestine and rectum (principal); C34.90 Malignant neoplasm of unspecified part of unspecified bronchus or lung; D12.4 Benign neoplasm of descending colon; K63.5 Polyp of colon; K57.30 Diverticulosis of large intestine without perforation or abscess without bleeding; K64.8 Other hemorrhoids; K62.89 Other specified diseases of anus and rectum; I10 Essential (primary) hypertension; I25.10 Atherosclerotic heart disease of native coronary artery without angina pectoris; Z87.891 Personal history of nicotine dependence; Z95.5 Presence of coronary angioplasty implant and graft; I25.2 Old myocardial infarction; Z79.51 Long term (current) use of inhaled steroids
CPT/HCPCS: 45380; 45385; 88305; 88342; J2704; J7120

== ENCOUNTER 2020-11-07 14:11 | Outpatient (CLI) | payer BC, SELFPAY ==
--- NOTE | ~2020-11-07 | US_ITS ---
EXAMINATION: US scrotum doppler DATE: 11/07/2020 14:43 INDICATION: Right testicular mass. Metastatic lung cancer. TECHNIQUE: Grayscale and Doppler ultrasound images of the testes were obtained. COMPARISON: None. FINDINGS: The right testis measures 3.2 x 3.0 x 2.4 cm. The left testis measures 3.7 x 2.1 x 2.2 cm. There is a 1.6 x 1.5 x 1.6 cm hypoechoic mass with internal vascular flow in right testicle. There is normal vascular flow to both testes. The right epididymis is not visualized. The left epididymis is normal with normal vascular flow. There is a large loculated right-sided hydrocele. IMPRESSION: 1. 1.6 cm mass in right testicle, which may be a primary neoplasm or metastatic disease. 2. Large loculated right-sided hydrocele. Reviewed, dictated and finalized at location A. IMPRESSION: 1. 1.6 cm mass in right testicle, which may be a primary neoplasm or metastati c disease. 2. Large loculated right-sided hydrocele.
== END 2020-11-07 14:12 | disposition home or self-care (01) ==
LOC: ANHIMG 14:14
PROVIDERS: PCP Family Medicine; Visit Provider Internal Medicine Hematology & Oncology
DX: N50.89 Other specified disorders of the male genital organs (principal); N43.3 Hydrocele, unspecified
CPT/HCPCS: 76870; 93976

== ENCOUNTER 2020-11-30 14:25 | Outpatient (CLI) | payer BC, SELFPAY ==
--- NOTE | ~2020-11-30 | CT_ITS ---
EXAMINATION: CT chest abdomen pelvis w con DATE: 11/30/2020 15:13 INDICATION: Neuroendocrine carcinoma TECHNIQUE: Computed tomography (CT) of the chest, abdomen, and pelvis was performed with 100 mL Omnip aque-350 intravenous contrast. Automated exposure control and iterative reconstruction technique were employed. The dose-length product was 1328.33 mGy-cm. COMPARISON: None FINDINGS: CHEST CT: Mild to moderate emphysema. Interval improved aeration in the right upper lobe with decrease in size of a right perihilar mass as well as decrease in the more peripheral likely secondary paramediastinal atelectasis in the right upper lobe. The medial collateral with of the mass has decreased from 7.7 c m to currently measuring 2.4 cm. The superior vena cava which was nearly completely occluded due to e xtrinsic compression from the mass has increased in diameter. There are new patchy groundglass opacit ies in the posterior right lower lobe. No significant interval change in a 3-4 mm pleural-based nodul e in the left lower lobe. A prior 12 mm nodule with lobular margins in the superior segment of the le ft lower lobe has resolved. Heart size is normal. Atherosclerotic coronary artery calcifications. No pericardial or pleural effus ion. Fusiform ascending thoracic aortic aneurysm measuring up to 4.5 cm in maximal diameter. Heteroge neously enhancing right thyroid nodule measuring up to 3.3 cm in maximal dimension on the sagittal im ages. Significant interval decrease in size of the soft tissue density infiltrating the mediastinum from th e region of the right hilum with significant decrease in the degree of extrinsic compression of the r ight bronchus intermedius and the right sided pulmonary arteries at the mediastinum and hilum. Again seen are several enlarged paraesophageal lymph nodes in the lower abdomen, a few which have increased in size. For reference a prior 1.4 x 1.1 cm lymph node has increased to 1.6 x 1.2 cm. Has however al so been interval decrease in size of a few previously enlarged and FDG avid left axillary lymph nodes . For reference a prior 2.5 x 2.3 cm left axillary lymph node currently measures 1.7 x 1.2 cm. No interval change in a couple sclerotic likely bone islands at the right scapula and at the lateral left seventh rib, both which were without increased FDG uptake at the time of the prior study. A mini corey displaced pathologic fracture at the left coracoid process with permeative appearance to the samantha ne and increased FDG uptake on the prior PET scan at this location consistent with underlying metasta tic disease. ABDOMEN/PELVIS CT: There are numerous hypoenhancing likely metastatic nodules and masses scattered throughout the liver. Some appear decreased in size since the prior study and some appear increased. For reference a previ ously 6.8 x 4.5 cm mass at the lateral right hepatic lobe has decreased 5.7 x 4.2 cm. Conversely a po kerwin defined previously no greater than 3 cm nodule in segment IVb along the anterior margin of the g allbladder fossa has increased to 4.5 cm diameter. Gallbladder, spleen and bilateral kidneys are normal. Interval decrease in size in previously FDG renu d nodules in the bilateral adrenal glands as well as at the head and tail of the pancreas. A prior 5. 5 x 4.8 cm FDG avid mass arising at the tip of the cecum likely from the appendix has decreased to 3. 3 x 3.0 cm. No bowel obstruction. There is mild wall thickening at the rectoanal junction with strand ing in the surrounding perirectal fat which is new since the prior study which could be metastatic or more likely infectious or inflammatory in etiology. Bladder is normal. Mild prostatomegaly. Significant decrease in size of many of the FDG avid abdominal lymph nodes beginning at the ileocolic mesentery extending proximally to the root of the mesentery and involving the periaortic, aortocaval , portacava
[2020-11-30 15:06] LABS: Estimated Glomerular Filt Rate > 60
== END 2020-11-30 14:26 | disposition home or self-care (01) ==
LOC: ANHIMG 14:31
PROVIDERS: PCP Family Medicine; Visit Provider Internal Medicine Hematology & Oncology
DX: C7A.8 Other malignant neuroendocrine tumors (principal); C7B.8 Other secondary neuroendocrine tumors; I71.4 Abdominal aortic aneurysm, without rupture; E04.1 Nontoxic single thyroid nodule; N43.3 Hydrocele, unspecified
CPT/HCPCS: 71260; 74177; Q9967

== ENCOUNTER 2020-12-02 10:48 | Outpatient (CLI) | payer BC, SELFPAY ==
--- NOTE | ~2020-12-02 | MR_ITS ---
EXAMINATION: MR brain/brain stem wo/w con EXAM DATE: 12/02/2020 12:45 INDICATION: C79.31 - Secondary malignant neoplasm of brain. TECHNIQUE: Magnetic resonance imaging (MRI) of the brain/brain stem obtained without contrast. Sagit atiya T1, axial diffusion, gradient echo (T2*), T1, T2, FLAIR sequences obtained. Patient was then inj ected with 19 cc intravenous Multihance contrast. Axial and coronal postcontrast T1 weighted sequence s obtained. Comparison is made to prior examination from 09/21/2020. FINDINGS: On prior study from outside institution performed September, patient had approximately 2.7 cm e nhancing right cerebellar mass. This has substantially decreased in size compared to that time now wi th heterogeneous signal intensity most consistent with hemosiderin deposit, region measuring up to 1. 2 cm. No enhancing component identified within this signal abnormality today, where as previously the entire mass enhanced. The previously seen right cerebellar reactive vasogenic edema has also resolve d. No other brain lesions identified, extra-axial collections or obstructive hydrocephalus. No acute inf arction. Metallic artifact from left-sided scalp. There is moderate right sphenoid mucoperiosteal thi ckening. Flow voids are seen in the cerebral arteries on the T2 weighted sequences consistent with th eir expected patency. Left vertebral artery is dominant. IMPRESSION: Decrease in size of right cerebellar mass with resolution of both enhancing component and associated vasogenic edema, appearance consistent with residual hemosiderin deposit from treated met astatic lesion. Reviewed, dictated and finalized at location B. IMPRESSION: Decrease in size of right cerebellar mass with resolution of both e nhancing component and associated vasogenic edema, appearance consistent with r esidual hemosiderin deposit from treated metastatic lesion.
== END 2020-12-02 10:49 | disposition home or self-care (01) ==
PROVIDERS: PCP Family Medicine; Visit Provider Radiology Radiation Oncology
DX: C79.31 Secondary malignant neoplasm of brain (principal)
CPT/HCPCS: 70553; A9577

== ENCOUNTER 2020-12-04 07:04 | Outpatient (RCR) | payer BC, SELFPAY ==
[2020-12-04] VITALS (10 sets, daily range): BP systolic 112–132; BP diastolic 55–91; PULSE 82–103; RESP 24–27; TEMP 36–36.3; O2SAT 96–100
[2020-12-04] MEDS: diphenhydrAMINE HCl CAP 25 MG CAPSULE PO (08:47)
[2020-12-04] MEDS: SODIUM CHLORIDE 0.9% IV 250 ML 60 ML IV CONT (09:00)
[2020-12-04] MEDS: FUROSEMIDE INJ 40 MG/4 ML VIAL 20 MG IV PUSH (12:00)
--- NOTE | 2020-12-04 12:23 | PC.NURSE ---
Pt tolerated first unit of PRBC, lasix given after first unit. Blood return confirmed to left lower abd infusion port. flushes easily. New IV tubing connected. second unit of PRBC started. Pt ambulated to bathroom to void after receiving lasix - gait steady. Pt having frequent belching - states it is normal for him to belch frequently. Pt complained of some SOB and pain in left upper chest 4/10. Pt states it is probably my cancer . VSS. pain is subsiding over last 10 mins.
[2020-12-04] MEDS: SODIUM CHLORIDE 0.9% IV 250 ML 60 ML (12:30)
[2020-12-04] MEDS: HEPARIN SOD FLUSH 500 UNITS/5 ML SYRINGE (15:25)
--- NOTE | 2020-12-04 15:38 | PC.NURSE ---
Transfusion complete. Left lower abdomen Port flushes easily with good blood return present. Port flushed with Hep flush. Discharged to personal vehicle via wheelchair. driving pt home. Reinforced signs of transfusion reaction. Instructions given
--- NOTE | 2020-12-04 15:44 | PC.NURSE ---
0830 Pt did not take pre med of Tylenol d/t taking his own pain medicine that includes tylenol on arrival to the hospital.
== END 2021-03-04 23:59 | disposition home or self-care (01) ==
LOC: ANHCPCTRAN 07:04
PROVIDERS: PCP Family Medicine; Visit Provider Internal Medicine Hematology & Oncology
DX: C34.90 Malignant neoplasm of unspecified part of unspecified bronchus or lung (principal)
CPT/HCPCS: 36415; 36430; 86850; 86900; 86901; 86920; 96374; A9270; J1940; J7050; P9016